=== PATIENT | female | born 1950 | race Caucasian/White ===

== ENCOUNTER 2019-05-31 05:22 | Emergency (ER) | payer MEDICARE ==
[~2019-05-31] VITALS: Ht 162.6 cm; Wt 81.7 kg
[2019-05-31] MEDS ORDERED: LIOTHYRONINE SO5 MCG PO (05:41)
[2019-05-31] MEDS ORDERED: LISINOPRIL5 MG PO (05:42)
[2019-05-31] MEDS ORDERED: SIMVASTATIN80 MG PO (05:43)
[2019-05-31] MEDS ORDERED: LEVOTHYROXINE100 MCG PO (05:43)
[2019-05-31] MEDS ORDERED: SYMBICORT 16010.2 GM INH (05:44)
[2019-05-31] MEDS ORDERED: DRIZALMA SPRINK60 MG PO (05:44)
[2019-05-31] MEDS ORDERED: VENTOLIN HFA18 GM INH ×2 (05:45→05:47)
[2019-05-31] MEDS ORDERED: ATIVAN1 MG PO (05:46)
--- NOTE | 2019-06-01 06:43 | EKG ---
[facility] [address] [facility] [place], [place] [address] Signed Sinus tachycardia Otherwise normal ECG No previous ECGs available Confirmed by AYE NOBLE MD ([id number]) on 06/01/2019 6:43:30 AM Electronically Signed By: AYE NOBLE MD 06/01/19 0643 PATIENT NAME: MONIQUE TOLLIVER Electrocardiogram DATE OF : 46 PHYSICIAN: AYE NOBLE MD REPORT #: [id number] REPORT IS CONFIDENTIAL AND NOT TO BE RELEASED WITHOUT AUTHORIZATION
== END 2019-05-31 07:17 | disposition home or self-care (01) ==
LOC: ED 05:22
DX: J44.1 Chronic obstructive pulmonary disease with (acute) exacerbation (principal); Z79.899 Other long term (current) drug therapy
CPT/HCPCS: 71046; 80053; 83735; 83880; 84484; 85025; 87502; 93005; 93010; 94640; 96374; 99285-25; J2930

== ENCOUNTER 2020-08-12 12:04 | Emergency (ER) | payer MEDICARE ==
[~2020-08-12] VITALS: Ht 162.6 cm; Wt 81.6 kg
[~2020-08-12 12:04] MED LIST: ATIVAN1 MG PO; DRIZALMA SPRINK60 MG PO; LEVOTHYROXINE100 MCG PO; LIOTHYRONINE SO5 MCG PO; LISINOPRIL5 MG PO; SIMVASTATIN80 MG PO; SYMBICORT 16010.2 GM INH; VENTOLIN HFA18 GM INH
[2020-08-12] MEDS ORDERED: MECLIZINE HCL25 MG PO (14:52)
[2020-08-12] MEDS ORDERED: ZOFRAN4 MG PO (14:52)
--- NOTE | 2020-08-13 09:51 | EKG ---
[facility] [address] [place] [address] Signed Sinus bradycardia Otherwise normal ECG When compared with ECG of 31-MAY-2019 05:29, Vent. rate has decreased BY 52 BPM Confirmed by SAMANTHA MCKINNON MD ([id number]) on 08/13/2020 9:51:51 AM Electronically Signed By: SAMANTHA MCKINNON MD 08/13/20 0951 PATIENT NAME: MONIQUE TOLLIVER Electrocardiogram DATE OF : 46 PHYSICIAN: SAMANTHA MCKINNON MD REPORT #: [id number] REPORT IS CONFIDENTIAL AND NOT TO BE RELEASED WITHOUT AUTHORIZATION
== END 2020-08-12 15:10 | disposition home or self-care (01) ==
LOC: ED 12:04
DX: R42 Dizziness and giddiness (principal); J44.9 Chronic obstructive pulmonary disease, unspecified; E03.9 Hypothyroidism, unspecified; I10 Essential (primary) hypertension; Z87.891 Personal history of nicotine dependence; Z88.8 Allergy status to other drugs, medicaments and biological substances; Z79.899 Other long term (current) drug therapy
CPT/HCPCS: 70450; 80053; 85025; 93005; 93010; 96374; 99284-25; J2405

== ENCOUNTER 2020-12-24 11:19 | Emergency (ER) | payer MEDICARE ==
[~2020-12-24] VITALS: Ht 162.6 cm; Wt 83.9 kg
[~2020-12-24 11:19] MED LIST changes: +MECLIZINE HCL25 MG PO; +ZOFRAN4 MG PO
[2020-12-24] MEDS ORDERED: VITAMIN D21250 MCG (11:30)
== END 2020-12-24 14:28 | disposition home or self-care (01) ==
LOC: ED 11:19
DX: S80.01XA Contusion of right knee, initial encounter (principal); W01.0XXA Fall on same level from slipping, tripping and stumbling without subsequent striking against object, initial encounter; J44.9 Chronic obstructive pulmonary disease, unspecified; E03.9 Hypothyroidism, unspecified; I10 Essential (primary) hypertension; Z87.891 Personal history of nicotine dependence; Z88.8 Allergy status to other drugs, medicaments and biological substances; Z79.899 Other long term (current) drug therapy
CPT/HCPCS: 73560; 99285-25

== ENCOUNTER 2022-02-27 20:15 | Emergency (ER) | payer MEDICARE ==
[~2022-02-27] VITALS: Ht 162.6 cm; Wt 83.9 kg
[~2022-02-27 20:15] MED LIST changes: +VITAMIN D21250 MCG
--- NOTE | 2022-02-28 21:09 | EKG ---
[facility] [address] [facility] [place] [address] Signed Normal sinus rhythm Normal ECG When compared with ECG of 12-AUG-2020 12:24, No significant change was found Confirmed by Wilda Hunt MD () on 02/28/2022 9:09:27 PM Electronically Signed By: WILDA HUNT MD 02/28/[id number] PATIENT NAME: MONIQUE TOLLIVER Electrocardiogram DATE OF : 46 PHYSICIAN: WILDA HUNT MD REPORT #: [id number] REPORT IS CONFIDENTIAL AND NOT TO BE RELEASED WITHOUT AUTHORIZATION
== END 2022-02-27 23:06 | disposition home or self-care (01) ==
LOC: ED 20:15
DX: R55 Syncope and collapse (principal); J44.9 Chronic obstructive pulmonary disease, unspecified; E03.9 Hypothyroidism, unspecified; I10 Essential (primary) hypertension; Z87.891 Personal history of nicotine dependence; Z88.8 Allergy status to other drugs, medicaments and biological substances; Z79.899 Other long term (current) drug therapy
CPT/HCPCS: 93005; 93010; 99284-25

== ENCOUNTER 2023-04-10 11:16 | Emergency (ER) | payer MEDICARE ==
[~2023-04-10] VITALS: Ht 162.6 cm; Wt 83.9 kg
[2023-04-10] MEDS ORDERED: BUDESONIDE-FO10.2 G1 IH (11:23)
[2023-04-10 11:43] LABS: BASOPHILS 0.6 % (0-2); EOSINOPHILS 4.8 % (0-6); HEMATOCRIT 37.4 % (35.0-50.0); HEMOGLOBIN 13.2 g/dL (12.0-18.0); LYMPHOCYTES 23.4 % (24-44); MCH 32.1 (27-36); MCHC 35.2 g/dl (30-36); NEUTROPHILS 62.2 % (39-80); PLATELET COUNT 234 K/uL (140-440); RBC 4.11 M/ul (4.3-5.7); RDW 13.1 (10.5-15.0)
[2023-04-10 11:57] LABS: BILIRUBIN, URINE NEGATIVE (negative); BLOOD/HGB, URINE NEGATIVE (Negative); KETONE, URINE NEGATIVE (Negative); LEUK ESTERASE, URINE MODERATE (negative); NITRITE, URINE NEGATIVE (negative)
[2023-04-10 11:57] LABS: ALBUMIN 3.4 g/dL (3.4-5.0); ALBUMIN/GLOBULIN RATIO 1.1 (1.1-2.4); BILIRUBIN, TOTAL 0.4 ng/dL (0.2-1.0); BUN/CREATININE RATIO 9.9 (6.0-28.6); CALCIUM 8.6 mg/dL (8.5-10.1); CREATININE, SERUM 1.01 mg/dL (0.55-1.02); PROTEIN, TOTAL 6.5 g/dL (6.4-8.2)
[2023-04-10 12:06] LABS: BACTERIA, URINE 4+ /hpf (negative); CASTS, URINE NONE SEEN \\lpf; COLLECTION TYPE, URINE CLEAN CATCH; CRYSTALS, URINE NONE SEEN (0-1+); EPITHELIAL CELLS, URINE SQUAMOUS 1+ /lpf (0-1+); REFLEX CULTURE, URINE Yes (No); WHITE BLOOD CELLS, URINE 21-40 /HPF (0-5)
[2023-04-10] MEDS ORDERED: CEFDINIR300 MG PO (14:38)
[2023-04-10] MEDS ORDERED: MECLIZINE HCL25 MG PO (14:40)
[2023-04-10 15:07] VITALS: BP 141/76
--- NOTE | 2023-04-11 15:20 | EKG ---
[facility] [address] [facility] [place], [place] [address] Signed Normal sinus rhythm Normal ECG When compared with ECG of 27-FEB-2022 21:53, No significant change was found Confirmed by FIOR MCCONNELL MD ([id number]) on 04/11/2023 3:19:48 PM Electronically Signed By: FIOR MCCONNELL 04/11/23 1520 PATIENT NAME: MONIQUE TOLLIVER Electrocardiogram DATE OF : 46 PHYSICIAN: FIOR MCCONNELL REPORT #: [id number] REPORT IS CONFIDENTIAL AND NOT TO BE RELEASED WITHOUT AUTHORIZATION
== END 2023-04-10 15:12 | disposition home or self-care (01) ==
LOC: ED 11:16
PROVIDERS: Emergency Medicine
DX: N39.0 Urinary tract infection, site not specified (principal); R42 Dizziness and giddiness; J44.9 Chronic obstructive pulmonary disease, unspecified; I10 Essential (primary) hypertension; E03.9 Hypothyroidism, unspecified; Z87.891 Personal history of nicotine dependence; Z91.09 Other allergy status, other than to drugs and biological substances; Z79.890 Hormone replacement therapy; Z79.899 Other long term (current) drug therapy
CPT/HCPCS: 36415; 80053; 81001; 85025; 93005; 93010; 96365; 99284-25; A9270; J0696

== ENCOUNTER 2023-05-21 12:34 | Emergency (ER) | payer MEDICARE ==
[~2023-05-21] VITALS: Ht 162.6 cm; Wt 80.8 kg
[~2023-05-21 12:34] MED LIST changes: +BUDESONIDE-FO10.2 G1 IH; +CEFDINIR300 MG PO
[2023-05-21 13:04] LABS: BILIRUBIN, URINE NEGATIVE (negative); BLOOD/HGB, URINE NEGATIVE (Negative); KETONE, URINE TRACE (Negative); LEUK ESTERASE, URINE TRACE (negative); NITRITE, URINE NEGATIVE (negative)
[2023-05-21 13:13] LABS: RED BLOOD CELLS, URINE 0-1 /hpf (0-5)
[2023-05-21 13:14] LABS: CRYSTALS, URINE NONE SEEN (0-1+); EPITHELIAL CELLS, URINE SQUAMOUS 1+ /lpf (0-1+); WHITE BLOOD CELLS, URINE 21-40 /HPF (0-5)
[2023-05-21 13:15] LABS: BACTERIA, URINE 3+ /hpf (negative); CASTS, URINE NONE SEEN \\lpf; COLLECTION TYPE, URINE CLEAN CATCH; REFLEX CULTURE, URINE Yes (No)
[2023-05-21 15:07] VITALS: BP 150/84
[2023-05-21] MEDS ORDERED: CEFDINIR300 MG PO (19:26)
== END 2023-05-21 14:57 | disposition other institution, planned readmission (95) ==
LOC: ED 12:34
PROVIDERS: Emergency Medicine
DX: N39.0 Urinary tract infection, site not specified (principal); Z53.29 Procedure and treatment not carried out because of patient's decision for other reasons; J44.9 Chronic obstructive pulmonary disease, unspecified; E03.9 Hypothyroidism, unspecified; I10 Essential (primary) hypertension; Z87.891 Personal history of nicotine dependence; Z88.8 Allergy status to other drugs, medicaments and biological substances; Z79.51 Long term (current) use of inhaled steroids; Z79.890 Hormone replacement therapy; Z79.899 Other long term (current) drug therapy
CPT/HCPCS: 81001; 87077; 87088; 87186; 99283